=== PATIENT | female | born 1980 | race African-American/Black ===

== ENCOUNTER 2020-05-01 04:24 | Emergency (ER) | payer OTHER, SELFPAY ==
--- NOTE | ~2020-05-01 | XR_ITS ---
EXAMINATION: XR chest 2V DATE: 05/01/2020 05:00 INDICATION: Shortness of breath with exertion TECHNIQUE: PA and lateral views of the chest are obtained. COMPARISON: None available FINDINGS: There are small pleural effusions. There is a mild diffuse interstitial pattern. Airspace o pacities are present in the lung bases. Cardiomegaly is noted. There is no pneumothorax. The visualiz ed osseous structures are unremarkable. IMPRESSION: 1. Cardiomegaly with mild pulmonary edema. 2. Small pleural effusions. 3. Bibasilar airspace opacity, consistent with atelectasis versus pneumonia. Reviewed, dictated and finalized at location A.
--- NOTE | 2020-05-01 04:36 | ECG_ITS ---
Measurements Intervals [place] Rate: 124 P: 61 WV: 149 QRS: 44 QRSD: 90 T: 56 QT: 305 QTc: 438 Interpretive Statements SINUS TACHYCARDIA VOLTAGE CRITERIA FOR LVH BORDERLINE ST ABNORMALITY- LATERAL LEADS ABNORMAL ECG Electronically Signed On 05-01-2020 6:52:05 CDT by Shaan Soliz D.O.
[2020-05-01 04:38] VITALS: BP 182/128; PULSE 126; RESP 23; O2SAT 96
[2020-05-01 04:54] LABS: Basophils Absolute Auto 0.1 K/mm3 (0.0-0.1); Basophils Percent Auto 0.8 % (0.2-1.2); Eosinophils Absolute Auto 0.2 K/mm3 (0-0.3); Eosinophils Percent Auto 1.6 % (0-4.4); Hematocrit 31.3 % (37.0-47.0); Immature Granulocyte Absolute 0.02 K/mm3 (0.00-0.031); Immature Granulocyte Percent A 0.2 % (0-0.5); Lymphocytes Absolute Auto 2.46 K/mm3 (0.9-3.2); Lymphocytes Percent Auto 23.9 % (18.3-44.2); Mean Corpuscular HGB Conc 28.8 g/dl (32-36); Mean Corpuscular Hemoglobin 19.4 pg (26-34); Mean Corpuscular Volume 67.3 fl (80-100); Mean Platelet Volume 10.7 fl (7.4-10.4); Monocytes Absolute Auto 0.5 K/mm3 (0.1-0.6); Monocytes Percent Auto 4.9 % (2.6-8.5); Neutrophils Absolute Auto 7.1 K/mm3 (1.3-6.7); Neutrophils Percent Auto 68.6 % (45.5-73.1); Nucleated Red Blood Cells Perc 0.2 % (0.0-0.2); Platelet Count Result 375 k/mm3 (150-375); Red Blood Count 4.65 M/mm3 (4.2-5.4); Red Cell Distribution Width 22.5 % (11.5-14.5); White Blood Count 10.3 K/mm3 (4.5-10.0)
[2020-05-01 05:03] VITALS: BP 167/122; PULSE 119; RESP 22; O2SAT 98
[2020-05-01 05:14] LABS: Hypochromasia 1+ (NORMAL); Lactic Acid Reflex 1.1 mmol/L (0.7-2.1); Microcytosis 1+ (NORMAL); Platelet Estimate Adequate (Adequate)
[2020-05-01 05:16] LABS: Anion Gap 11.4 mmol/L (7-16); Blood Urea Nitrogen 14 mg/dL (7-17); Carbon Dioxide 22 mmol/L (22-30); Chloride 104 mmol/L (98-107); Estimated Glomerular Filt Rate > 60; Glucose 115 mg/dL (65-105); Potassium 3.4 mmol/L (3.4-5.0); Sodium 134 mmol/L (137-145)
[2020-05-01 06:16] VITALS: BP 177/108; PULSE 118; RESP 22; O2SAT 96
[2020-05-01 06:29] VITALS: PULSE 115
[2020-05-01] MEDS: FUROSEMIDE INJ 40 MG/4 ML VIAL IV PUSH (06:29)
[2020-05-01] MEDS: METOPROLOL TARTRATE INJ 5 MG/5 ML VIAL IV PUSH (06:29)
--- NOTE | 2020-05-01 06:32 | ED.SOB ---
HPI - SOB/Dyspnea General Chief Complaint: Shortness of Breath/Dyspnea Stated Complaint: SOB Time Seen by Provider: 05/01/20 06:13 History of Present Illness HPI Narrative: Patient presents to the ER with increasing shortness of breath. She was diagnosed with congestive heart failure last June at a different hospital. She was given numerous medications that she never filled or took. 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 Recently she noticed increasing swelling during the day, and difficulty sleeping flat at night. She said now even across the room causes severe shortness of breath. She does not smoke cigarettes, but she does smoke marijuana. She does not have any asthma or COPD. She works from home for unemployment. She has 2 children at home. Her only other medical problem is high blood pressure. She also is not taking any medicine for the blood pressure. She has a little bit of a cough is dry. MD elicited complaint: shortness of breath and cough Pertinent past history: congestive heart failure Onset (ago): day(s) Context: occurred during exertion and other (Difficulty sleeping flat) Timing: intermittent and progressively worsening Severity: severe Exacerbating factors: lying flat and exertion Relieving factors: rest and upright position Known history of: congestive heart failure and other (Hypertension) Associated symptoms: cough, orthopnea and palpitations Treatment prior to arrival: none Related Data Home oxygen amount: none Allergies Allergy/AdvReac Type Severity Reaction Status Date / Time No Known Allergies Allergy Verified 05/01/20 04:43 Review of Systems Review of Systems: Narrative: CONSTITUTIONAL: Denies fever, chills, or sweats. EYES: Denies visual changes, redness, or discharge. ENT: Denies rhinorrhea, congestion, sore throat, or otalgia. CARDIOVASCULAR: Denies chest pain, palpitations, but she does have edema. RESPIRATORY: Slight cough and significant dyspnea. GASTROINTESTINAL: Denies abdominal pain, nausea, vomiting, or diarrhea. GENITOURINARY: Denies dysuria or hematuria. SKIN: Denies rash or itching. MUSCULOSKELETAL: Denies back pain, joint pain, or myalgia. NEUROLOGIC: Denies headache, numbness, or weakness. PSYCHIATRIC: Denies anxiety or depression. All systems reviewed & are unremarkable except as noted in HPI and below PMFSH Past Medical History Medical History (Updated 05/01/20 @ 06:38 by Sully Estrada MD) Anemia CHF (congestive heart failure) Hypertensive crisis Social History Social History (Updated 05/01/20 @ 06:35 by Sully Estrada MD) Smoking status: Never smoker Alcohol intake: current Substance use: current Substance use type: marijuana Gender identity (if verbalized by the patient): Female Exam Narrative: Exam Narrative: GENERAL: Well-appearing, well-nourished, and in no acute distress. Clotilde young lady with epicanthal folds. HEAD: Normocephalic, atraumatic. EYES: PERRLA and EOMI. ENT: Nares clear, no rhinorrhea or epistaxis. Mucous membranes moist. NECK: Supple. CHEST: Clear to auscultation. No respiratory distress. HEART: Regular rate and rhythm. No murmur heard. Normal peripheral pulses. ABDOMEN: Soft, nontender, nondistended, normal active bowel sounds. EXTREMITIES: Normal range of motion. No edema. SKIN: Warm, dry, no rash. NEURO: No focal deficits. Alert and oriented x3. PSYCH: Normal mood and affect. Course Vital Signs Vital signs: Vital Signs Pulse Rate 126 H 05/01/20 04:38 Respiratory Rate 23 H 05/01/20 04:38 Blood Pressure 182/128 H 05/01/20 04:38 Pulse Oximetry 96 05/01/20 04:38 Pulse Rate 115 H 05/01/20 06:29 Respiratory Rate 22 H 05/01/20 06:16 Blood Pressure 177/108 H 05/01/20 06:16 Pulse Oximetry 96 05/01/20 06:16 MDM - SOB/Dyspnea Differential Diagnosis Differential diagnosis: Likely congestive heart failure Medical Records Attestation: I reviewed the patient's medical records. Lab Data Attestati
[2020-05-01 07:10] LABS: NT Pro B Type Natriuretic Pept 4100 PG/ML (5-100); Troponin I 0.024 ng/mL (0.000-0.034)
[2020-05-01 07:13] VITALS: BP 148/91; PULSE 99; RESP 19; O2SAT 96
--- NOTE | 2020-05-01 07:20 | PC.NURSE ---
MD VERDIN MADE AWARE THE TROP AND BNP ARE NOT BACK PRIOR TO PATIENT BEING PUT UP FOR DISCHARGE. MD VERDIN OKAYED THE PATIENT TO BE DISCHARGED.
== END 2020-05-01 07:17 | disposition home or self-care (01) ==
PROVIDERS: Emergency Provider Emergency Medicine; PCP Family Medicine
DX: I16.9 Hypertensive crisis, unspecified (principal); R00.0 Tachycardia, unspecified; I50.9 Heart failure, unspecified; I11.0 Hypertensive heart disease with heart failure; D64.9 Anemia, unspecified; R94.31 Abnormal electrocardiogram [ECG] [EKG]
CPT/HCPCS: 36415; 71046; 80048; 83605; 83880; 84484; 85025; 93005; 96374; 96375; 99284; J1940